=== PATIENT | female | born 1965 | race Caucasian/White ===

== ENCOUNTER 2016-08-22 21:59 | Emergency (ER) | payer OTHER ==
[~2016-08-22] VITALS: Ht 170.2 cm; Wt 59.0 kg
[2016-08-22 22:25] VITALS: BP 143/84
[2016-08-22] MEDS ORDERED: DEXAMETHASONE SOD PHOSPHATE 10 MG/ML VIAL ONE (22:43)
[2016-08-22] MEDS ORDERED: DEXAMETHASONE SOD PHOSPHATE 4 MG/ML VIAL IM ONE (23:00)
== END 2016-08-22 23:12 | disposition home or self-care (01) ==
LOC: ER 22:03
DX: M25.511 Pain in right shoulder (principal); I10 Essential (primary) hypertension; Z88.8 Allergy status to other drugs, medicaments and biological substances
CPT/HCPCS: A4606; J1100; Z7502; Z7610